=== PATIENT | male | born 1935 | race Asian ===

== ENCOUNTER 2019-12-03 11:36 | Inpatient (IN) | payer MEDICARE, MEDICAID ==
[~2019-12-03] VITALS: Ht 167.6 cm; Wt 81.2 kg
[~2019-12-03 11:36] MED LIST: ACET325T14 PO; ASPI-515 PO; ASPI81TA14 PO; CALC0.25 PO; CARV3.122 PO; CEFT2PIG IVPB; CILO50TA PO; CINA30TA2 PO; CIPR500T87 PO; CLOP75TA52 PO; DAPT500V6 IVPB; ERGO500017 PO; FLUD0.1T PO; FURO-92 PO; FURO-93 PO; FURO40TA6 PO; GABA-826 PO; GABA300C10 PO; HUM100VI6 SQ; HYDR-3240 PO; HYDR4TAB48 PO; INSU100I17 SQ-INSULIN; ISOS30TA8 PO; LEVO500T47 PO; LISI2.5T PO; LOSA50TA2 PO; NITR0.4T28 SL; OXYC-302 PO; OXYC-307 PO; OXYC-432 PO; OXYC5TAB3 PO; SEVE800T7 PO; SIMV40TA20 PO; hydromorphone; insulin 70/30 SC
--- NOTE | 2019-12-03 12:13 | NUR ---
Excess bleeding from my arm (left); started last night. Pt is dialysis patient. Upper arm wrapped w/ nadeem wrap. Pt's [facility] dialysis nurse was contacted today; advised ED jovani. Pt had dialysis yesterday; minor bleeding post-procedure. Pt coughed last night, while eating a carrot, and bleeding worsened.
--- NOTE | 2019-12-03 12:16 | NUR ---
GRANDDAUGHTER STATES PT UNABLE TO STAND BY HIMSELF FOR A LONG TIME. PT HAS A WALKER, BUT USES W/C OR ELECTRIC SCOOTER. PT HAS BILAT BKA.
--- NOTE | 2019-12-03 12:19 | NUR ---
CXR AT BS
[2019-12-03 12:37] LABS: BASOPHILS # (AUTO) 0.03 x10^3/uL (0-0.1); BASOPHILS % (AUTO) 0 % (0-1); EOSINOPHILS # (AUTO) 0.17 x10^3/uL (0-0.4); EOSINOPHILS % (AUTO) 2 % (1-7); LYMPHOCYTES # (AUTO) 1.75 x10^3/uL (1-3.4); LYMPHOCYTES % (AUTO) 23 % (22-44); MD NO; MEAN CORPUSCULAR HEMOGLOBIN 27.1 pg (27.5-34.5); MEAN CORPUSCULAR HGB CONC 31.7 g/dL (33.2-36.2); MEAN CORPUSCULAR VOLUME 85.5 fL (81-97); MEAN PLATELET VOLUME 9.8 fL (7.4-10.4); MONOCYTES # (AUTO) 0.78 x10^3/uL (0.2-0.8); MONOCYTES % (AUTO) 10 % (2-9); NEUTROPHILS # (AUTO) 5.01 x10^3/uL (1.8-6.8); NEUTROPHILS % (AUTO) 65 % (42-75); PLATELET COUNT 191 x10^3/uL (130-400); RED BLOOD COUNT 4.62 x10^6/uL (4.38-5.82); RED CELL DISTRIBUTION WIDTH 17.7 % (9.4-14.8)
[2019-12-03 12:48] LABS: ALBUMIN 3.1 g/dL (3.4-5.0); ANION GAP 4 mmol/L (5-15); CALCIUM 9.5 mg/dL (8.5-10.1); CHLORIDE 98 mmol/L (98-107); CREATININE 5.77 mg/dL (0.7-1.3)
[2019-12-03 12:51] LABS: TROPONIN I 0.078 ng/mL (0.000-0.045)
[2019-12-03] MEDS ORDERED: MIDO5TAB4 PO (13:36)
[2019-12-03] MEDS ORDERED: LIDO30CR TP (13:36)
[2019-12-03] MEDS ORDERED: CILO50TA PO (13:36)
[2019-12-03] MEDS ORDERED: CINA30TA6 PO (13:36)
[2019-12-03] MEDS ORDERED: NITR0.3T5 SL (13:36)
[2019-12-03] MEDS ORDERED: TAMS-11 PO (13:36)
[2019-12-03] MEDS ORDERED: CLOP75TA PO (13:36)
--- NOTE | 2019-12-03 13:46 | NUR ---
DR MADISON [facility] FOR EXAM
[2019-12-03] MEDS ORDERED: GLUCAGON 1 MG IM PRN (14:30)
[2019-12-03] MEDS ORDERED: hydrALAzine 20 MG/ML, 1ML IVPush PRN (14:30)
[2019-12-03] MEDS ORDERED: OXYcodone/APAP 10/325MG TABLET PO PRN (14:30)
[2019-12-03] MEDS ORDERED: ONDANSETRON ODT 4 MG PO PRN (14:30)
[2019-12-03] MEDS ORDERED: DOCUSATE 100 MG CAPSULE PO PRN (14:30)
[2019-12-03] MEDS ORDERED: ACETAMINOPHEN 325 MG TABLET PO PRN (14:30)
[2019-12-03] MEDS ORDERED: DEXTROSE 4 GM TAB.CHEW PO PRN (14:30)
[2019-12-03] MEDS ORDERED: ENALAPRILAT 1.25 MG/ML, 2ML IVPush PRN (14:30)
[2019-12-03] MEDS ORDERED: DEXTROSE 50%, 50ML SYRINGE IVPush PRN (14:30)
[2019-12-03] MEDS ORDERED: HEPARIN 5,000 UNITS/ML, 1ML ONE (14:44)
[2019-12-03] MEDS: HEPARIN 5,000 UNITS/ML, 1ML SQ SCH ×2 (14:49→22:30)
--- NOTE | 2019-12-03 14:51 | NUR ---
CALLED UNIT, RECEIVING RN NOT CURRENTLY AVAILABLE BUT WILL CALL BACK.
--- NOTE | 2019-12-03 15:14 | NUR ---
PT REPORT TO ROBIN TALAMANTES - FOR RECEIVING RN.
[2019-12-03] MEDS ORDERED: INSULIN REGULAR 100 UNITS/ML, 3ML VIAL SQ-INSULIN SCH (16:00)
[2019-12-03] MEDS: MIDODRINE 5 MG TABLET PO SCH ×2 (16:00→19:46)
[2019-12-03] MEDS: INSULIN LISPRO 100 UNITS/ML, PEN SQ-INSULIN SCH ×2 (16:00→20:17)
--- NOTE | 2019-12-03 16:01 | NUR ---
this tech transported pt
[2019-12-03 16:04] VITALS: BP 143/65
[2019-12-03] MEDS: FLUDROCORTISONE 0.1 MG TABLET PO SCH ×2 (17:33→19:50)
[2019-12-03 18:09] LABS: TROPONIN I 0.068 ng/mL (0.000-0.045)
[2019-12-03] MEDS: GABAPENTIN 300 MG CAPSULE PO SCH (19:46)
[2019-12-03] MEDS: SIMVASTATIN 40 MG TABLET PO SCH (19:46)
[2019-12-03] MEDS: TAMSULOSIN 0.4 MG CAP.ER.24H PO SCH (19:46)
[2019-12-03] MEDS: CILOSTAZOL 100 MG TABLET PO SCH (19:47)
[2019-12-03] MEDS: SODIUM CHLORIDE FLUSH 10ML SYR IVF SCH (19:47)
[2019-12-03 19:48] VITALS: BP 135/69
[2019-12-03 21:09] LABS: TROPONIN I 0.095 ng/mL (0.000-0.045)
[2019-12-04] MEDS ORDERED: ALBUMIN HUMAN 25% 100 ML IV STA (02:51)
[2019-12-04 04:58] LABS: BASOPHILS # (AUTO) 0.04 x10^3/uL (0-0.1); BASOPHILS % (AUTO) 1 % (0-1); EOSINOPHILS # (AUTO) 0.17 x10^3/uL (0-0.4); EOSINOPHILS % (AUTO) 2 % (1-7); LYMPHOCYTES % (AUTO) 13 % (22-44); MD NO; MEAN CORPUSCULAR HEMOGLOBIN 26.8 pg (27.5-34.5); MEAN CORPUSCULAR HGB CONC 31.2 g/dL (33.2-36.2); MEAN CORPUSCULAR VOLUME 85.9 fL (81-97); MEAN PLATELET VOLUME 8.8 fL (7.4-10.4); MONOCYTES # (AUTO) 0.58 x10^3/uL (0.2-0.8); MONOCYTES % (AUTO) 7 % (2-9); NEUTROPHILS # (AUTO) 6.36 x10^3/uL (1.8-6.8); NEUTROPHILS % (AUTO) 77 % (42-75); PLATELET COUNT 159 x10^3/uL (130-400); RED BLOOD COUNT 3.85 x10^6/uL (4.38-5.82); RED CELL DISTRIBUTION WIDTH 17.1 % (9.4-14.8)
[2019-12-04 05:06] LABS: ALBUMIN 3.2 g/dL (3.4-5.0); CALCIUM 8.5 mg/dL (8.5-10.1); CHLORIDE 103 mmol/L (98-107)
[2019-12-04 05:08] LABS: ANION GAP 5 mmol/L (5-15); CREATININE 2.45 mg/dL (0.7-1.3)
[2019-12-04] MEDS: FLUDROCORTISONE 0.1 MG TABLET PO SCH ×4 (05:49→20:11)
[2019-12-04] MEDS: HEPARIN 5,000 UNITS/ML, 1ML SQ SCH ×4 (05:49→19:40)
[2019-12-04] MEDS ORDERED: MORPHINE SULFATE 4 MG/ML, 1ML IVPush PRN (06:30)
[2019-12-04 07:27] VITALS: BP 156/64
[2019-12-04] MEDS: INSULIN LISPRO 100 UNITS/ML, PEN SQ-INSULIN SCH ×4 (07:55→21:00)
[2019-12-04 08:02] LABS: TROPONIN I 0.099 ng/mL (0.000-0.045)
[2019-12-04] MEDS: CILOSTAZOL 100 MG TABLET PO SCH ×2 (08:04→20:12)
[2019-12-04] MEDS: MIDODRINE 5 MG TABLET PO SCH ×3 (08:04→20:12)
[2019-12-04] MEDS: SODIUM CHLORIDE FLUSH 10ML SYR IVF SCH ×2 (08:05→20:12)
[2019-12-04] MEDS: CLOPIDOGREL 75 MG TABLET PO SCH (08:05)
[2019-12-04] MEDS ORDERED: ASPIRIN 81 MG TABLET EC PO SCH (09:00)
[2019-12-04 13:37] VITALS: BP 136/63
[2019-12-04 19:40] VITALS: BP 129/58
[2019-12-04] MEDS: GABAPENTIN 300 MG CAPSULE PO SCH (20:11)
[2019-12-04] MEDS: TAMSULOSIN 0.4 MG CAP.ER.24H PO SCH (20:11)
[2019-12-04] MEDS: SIMVASTATIN 40 MG TABLET PO SCH (20:11)
[2019-12-05 01:02] VITALS: BP 133/62
[2019-12-05] MEDS: FLUDROCORTISONE 0.1 MG TABLET PO SCH ×4 (05:14→21:57)
[2019-12-05 06:13] LABS: CHLORIDE 101 mmol/L (98-107)
[2019-12-05 06:18] LABS: ALANINE AMINOTRANSFERASE 11 U/L (12-78); ALBUMIN 3.2 g/dL (3.4-5.0); ALKALINE PHOSPHATASE 79 U/L (45-117); ANION GAP 7 mmol/L (5-15); BILIRUBIN,TOTAL 0.4 mg/dL (0.2-1.0); CALCIUM 9.4 mg/dL (8.5-10.1); CREATININE 6.01 mg/dL (0.7-1.3); TOTAL PROTEIN 7.2 g/dL (6.4-8.2)
[2019-12-05 06:29] VITALS: BP 110/62
[2019-12-05] MEDS: INSULIN LISPRO 100 UNITS/ML, PEN SQ-INSULIN SCH ×4 (08:54→21:00)
[2019-12-05] MEDS: MIDODRINE 5 MG TABLET PO SCH (08:55)
[2019-12-05] MEDS: CILOSTAZOL 100 MG TABLET PO SCH ×2 (08:55→09:00)
[2019-12-05] MEDS: SODIUM CHLORIDE FLUSH 10ML SYR IVF SCH ×2 (09:00→21:57)
[2019-12-05] MEDS ORDERED: CINACALCET 30 MG TABLET PO SCH (09:00)
[2019-12-05] MEDS: CLOPIDOGREL 75 MG TABLET PO SCH (09:00)
[2019-12-05] MEDS ORDERED: MIDODRINE 5 MG TABLET PO SCH (11:00)
[2019-12-05 12:01] VITALS: BP 143/55
[2019-12-05] MEDS ORDERED: PROTAMINE SULFATE 10 MG/ML, 25ML ONE (12:09)
[2019-12-05] MEDS ORDERED: MIDAZOLAM 1 MG/ML, 5ML ONE (12:09)
[2019-12-05] MEDS ORDERED: FLUMAZENIL 0.1 MG/1 ML, 5ML ONE (12:09)
[2019-12-05] MEDS ORDERED: FENTANYL PF 100 MCG/2ML ONE (12:09)
[2019-12-05] MEDS ORDERED: NALOXONE 1 MG/ML, 2ML ONE (12:09)
[2019-12-05] MEDS ORDERED: HEPARIN 1,000 UNITS/ML, 10ML ONE (12:09)
[2019-12-05] MEDS ORDERED: LIDOCAINE 1%, 10ML ONE (12:20)
[2019-12-05 13:47] VITALS: BP 144/71
[2019-12-05] MEDS: HEPARIN 5,000 UNITS/ML, 1ML SQ SCH ×2 (15:15→22:30)
[2019-12-05 21:47] VITALS: BP 135/71
[2019-12-05] MEDS: GABAPENTIN 300 MG CAPSULE PO SCH (21:57)
[2019-12-05] MEDS: SIMVASTATIN 40 MG TABLET PO SCH (21:57)
[2019-12-05] MEDS: TAMSULOSIN 0.4 MG CAP.ER.24H PO SCH (21:57)
[2019-12-06 00:27] VITALS: BP 119/69
[2019-12-06] MEDS: FLUDROCORTISONE 0.1 MG TABLET PO SCH ×2 (06:21→12:06)
[2019-12-06] MEDS: HEPARIN 5,000 UNITS/ML, 1ML SQ SCH ×2 (06:22→14:30)
[2019-12-06 06:38] LABS: ANION GAP 7 mmol/L (5-15); CHLORIDE 101 mmol/L (98-107); CREATININE 4.38 mg/dL (0.7-1.3)
[2019-12-06 07:03] VITALS: BP 122/57
[2019-12-06] MEDS: INSULIN LISPRO 100 UNITS/ML, PEN SQ-INSULIN SCH ×2 (07:33→11:00)
[2019-12-06] MEDS: ASPIRIN 81 MG TABLET CHEW PO SCH ×2 (08:41→08:43)
[2019-12-06] MEDS: SODIUM CHLORIDE FLUSH 10ML SYR IVF SCH (08:43)
[2019-12-06] MEDS ORDERED: PATI16.8 PO (11:04)
[2019-12-06 12:07] VITALS: BP 143/64
== END 2019-12-06 15:32 | disposition home health service (06) | DRG 252 ==
LOC: ED 12:28 → EDIP 15:15 → OBSVTOIN 15:15 → 4EST 15:43
PROVIDERS: ADMIT Family Medicine; ATTEND Family Medicine
PROC: 5A1D70Z Performance of Urinary Filtration, Intermittent, Less than 6 Hours Per Day (ICD-10-PCS; 2019-12-04)
PROC: 05783ZZ Dilation of Left Axillary Vein, Percutaneous Approach (ICD-10-PCS; principal; 2019-12-05)
PROC: 05763ZZ Dilation of Left Subclavian Vein, Percutaneous Approach (ICD-10-PCS; 2019-12-05)
PROC: B51W1ZZ Fluoroscopy of Dialysis Shunt/Fistula using Low Osmolar Contrast (ICD-10-PCS; 2019-12-05)
PROC: 5A1D70Z Performance of Urinary Filtration, Intermittent, Less than 6 Hours Per Day (ICD-10-PCS; 2019-12-05)
DX: T82.838A Hemorrhage due to vascular prosthetic devices, implants and grafts, initial encounter (principal); N18.6 End stage renal disease; I13.2 Hypertensive heart and chronic kidney disease with heart failure and with stage 5 chronic kidney disease, or end stage renal disease; I82.A12 Acute embolism and thrombosis of left axillary vein; I25.110 Atherosclerotic heart disease of native coronary artery with unstable angina pectoris; E46 Unspecified protein-calorie malnutrition; I82.B12 Acute embolism and thrombosis of left subclavian vein; I87.1 Compression of vein; D63.1 Anemia in chronic kidney disease; E11.22 Type 2 diabetes mellitus with diabetic chronic kidney disease; E11.51 Type 2 diabetes mellitus with diabetic peripheral angiopathy without gangrene; E83.39 Other disorders of phosphorus metabolism; E78.5 Hyperlipidemia, unspecified; E87.5 Hyperkalemia; F06.4 Anxiety disorder due to known physiological condition; G62.9 Polyneuropathy, unspecified; I25.2 Old myocardial infarction; I44.7 Left bundle-branch block, unspecified; I50.9 Heart failure, unspecified; N25.0 Renal osteodystrophy; R79.1 Abnormal coagulation profile; Y84.1 Kidney dialysis as the cause of abnormal reaction of the patient, or of later complication, without mention of misadventure at the time of the procedure; Z79.02 Long term (current) use of antithrombotics/antiplatelets; Z79.82 Long term (current) use of aspirin; Z89.511 Acquired absence of right leg below knee; Z89.512 Acquired absence of left leg below knee; Z95.1 Presence of aortocoronary bypass graft; Z99.2 Dependence on renal dialysis; Z95.5 Presence of coronary angioplasty implant and graft; G89.29 Other chronic pain; Z68.28 Body mass index [BMI] 28.0-28.9, adult; Z83.3 Family history of diabetes mellitus; Z82.49 Family history of ischemic heart disease and other diseases of the circulatory system
CPT/HCPCS: 36415; 36902; 36907; 71045; 80048; 80053; 80069; 82040; 82962; 83735; 84100; 84484; 85025; 86706; 87340; 93005; 99156; 99157; 99285; C1725; C1894; G0378; J1644; J2250; J2720; J3010; P9047; C1751; C1769; J1815; J2270; J2310